=== PATIENT | female | born 1975 | race Caucasian/White ===

== ENCOUNTER 2021-06-30 18:58 | Emergency (ER) | payer OTHER, SELFPAY ==
--- NOTE | ~2021-06-30 | CT_ITS ---
EXAMINATION: CT ABDOMEN AND PELVIS WITH CONTRAST CLINICAL INFORMATION: Pain to palpation, right lower quadrant COMPARISON: None TECHNIQUE: Multidetector volumetric images were obtained from the superior aspect of the liver through the pubic symphysis following administration 85 mL of Omnipaque 350 intravenous contrast. Sagittal and coronal reformatted images were obtained on the technologist's workstation. Oral contrast: No This CT examination was performed using dose optimization techniques as appropriate, variously including the following: *Automated exposure control *Adjustment of mA and/or kV according to patient size (this includes techniques or standardized protocols for targeted exams where dose is matched to indication/reason for exam; i.e. extremities or head) *Use of iterative reconstruction technique DLP: 582 mGy-cm FINDINGS: LUNG BASES: The visualized lung bases are unremarkable. LIVER, GALLBLADDER, AND BILIARY TREE: The liver is normal in size, shape, and attenuation. No focal hepatic lesion or biliary ductal dilatation is present. Cholecystectomy. PANCREAS: Unremarkable. SPLEEN: Unremarkable. ADRENAL GLANDS: Unremarkable. KIDNEYS AND URETERS: The kidneys are normal in size, shape, and attenuation. There are couple subcentimeter cysts in the lower pole of left kidney, benign requiring no further follow-up. No hydronephrosis, hydroureter, or calculi seen. No perinephric stranding. BLADDER: Unremarkable. GASTROINTESTINAL TRACT: The small and large bowel are unremarkable. The appendix is unremarkable. ABDOMINAL WALL: No significant hernia is appreciated. LYMPH NODES: Normal. VASCULAR: Unremarkable. PELVIC VISCERA: Uterus and ovaries are unremarkable. OSSEOUS STRUCTURES: No acute or suspicious osseous abnormalities. Degenerative changes present at L5-S1. CT/CT abdomen pelvis w con IMPRESSION: No potential etiology for the patient's pain in the right lower quadrant is identified. Appendix is normal. Cholecystectomy.
[2021-06-30 19:30] VITALS: BP 134/93; PULSE 71; RESP 18; TEMP 35.9; O2SAT 100; BMI 34.0
--- NOTE | 2021-06-30 20:12 | ED.ABDPAIN ---
HPI - Abdominal Pain General Chief Complaint: Abdominal Pain <Shaun Mariano MD - Last Filed: 06/30/21:> Stated Complaint: abd pain <Shaun Mariano MD - Last Filed: 06/30/21:> Time Seen by Provider: 06/30/21 19:58 <Shaun Mariano MD - Last Filed: 06/30/21:> Source: patient <Shaun Mariano MD - Last Filed: 06/30/21:> Mode of arrival: ambulatory <Shaun Mariano MD - Last Filed: 06/30/21:> Limitations: no limitations <Shaun Mariano MD - Last Filed: 06/30/21:> History of Present Illness HPI narrative: 46-year-old female to the emergency department with right lower quadrant pain, anorexia, diarrhea and dizziness x4 days. She states that she decided to come into the emergency department because urgent care was concerned about appendicitis. She states that the pain was initially intermittent in nature and now the patient is constant. It does not radiate. She states that she has been having about 2 episodes of diarrhea per day. She states that she has been dizzy on and off since Monday and she describes as not being able to catch her balance. She also states that she has had decreased appetite since Monday. Past surgical history significant for cholecystectomy. She denies fevers, chills, chest pain, shortness of breath, recent upper respiratory infection and, weakness. <Shaun Mariano MD - Last Filed: 06/30/21 21:> MD elicited complaint: abdominal pain <Shaun Mariano MD - Last Filed: 06/30/21:> Pertinent past history: none <Shaun Mariano MD - Last Filed: 06/30/21:> Onset (ago): day(s) (4) <Shaun Mariano MD - Last Filed: 06/30/21:> Pain Consistency: constant <Shaun Mariano MD - Last Filed: 06/30/21:> Location: RLQ <Shaun Mariano MD - Last Filed: 06/30/21:> Severity: severe <Shaun Mariano MD - Last Filed: 06/30/21 21:> Quality: stabbing <Shaun Mariano MD - Last Filed: 06/30/21 21:> Radiation: none <Shaun Mariano MD - Last Filed: 06/30/21 21:> Migration to: no migration <Shaun Mariano MD - Last Filed: 06/30/21 21:> Exacerbating factors: nothing <Shaun Mariano MD - Last Filed: 06/30/21 21:> Relieving factors: nothing <Shaun Mariano MD - Last Filed: 06/30/21 21:> Associated symptoms: diarrhea and anorexia <Shaun Mariano MD - Last Filed: 06/30/21 21:> Related Data Allergies/Adverse Reactions: Allergies Allergy/AdvReac Type Severity Reaction Status Date / Time acetaminophen [From Percocet] Allergy Itching Verified 06/30/21 19:39 oxycodone [From Percocet] Allergy Itching Verified 06/30/21 19:39 <Shaun Mariano MD - Last Filed: 06/30/21 21:> Review of Systems Review of Systems Constitutional : No Weight loss, No Fever, No Chills, No Night Sweats, No Fatigue, No Malaise ENT/Mouth : No Hearing loss, No Ear Pain, No Nasal Congestion, No Sinus Pain, No Hoarseness, No sore throat, No Rhinorrhea, No Swallowing Difficulty Eyes: No Eye Pain, No Swelling, No Redness, No Foreign Body, No Discharge, No Vision Changes Cardiovascular : No Chest Pain, No SOB, No Dyspnea on Exertion, No Orthopnea, No Edema, No Palpitations Respiratory : No Cough, No Sputum, No Wheezing, No Smoke Exposure, No Dyspnea Gastrointestinal : No Nausea, No Vomiting, positive Diarrhea, positive abdominal Pain, No Hematochezia, No Melena Genitourinary : no irregular bleeding, No Dysuria, No Urinary Frequency, No Hematuria, No Urinary Incontinence, No Urgency, No Flank Pain, No Urinary Flow Changes, No Hesitancy Musculoskeletal : No joint pain, No Myalgias, No Joint Swelling Skin : No Skin Lesions, No rash Neuro : No Weakness, No Numbness, No Paresthesias, No Loss of Consciousness, No Dizziness, No Headache <Shaun Mariano MD - Last Filed: 06/30/21 21:01> Reports Abnormal speech present <Shaun Mariano MD - Last Filed: 06/30/21 21:01> Physical Exam Vital Signs: Vital Signs: Last Vital Signs Temp 96.6 F L 06/30/21 19:30 Pulse 71 06/30/21 19:30 Resp 18 06/30/21 19:30 BP 134/93 H 06/30/21 19:30 Pulse Ox 100 06/30/21 19:30 Body Mass Index 34.0 <Shaun Mariano MD - Last Filed: 06/30/21 21:01> Vital Signs: Last Vital Signs Temp 96.6 F L 06/30/21 19:30 Pulse 71 06/30/21 19:30 Resp 18 06/30/21 19:30 BP 134/93 H 06/30/21 19:30 Pulse Ox 100 06/30/21 19:30 Body Mass Index 34.0 <Ines Mera MD - Last Filed: 06/30/21 23:15> Const: General: cooperative <Shaun Mariano MD - Last Filed: 06/30/21 21:01> Nutritional Appearance: average body habitus <Shaun Mariano MD - Last Filed: 06/30/21 21:01> Orientation/consciousness: oriented to person, oriented to place and oriented to time <Shaun Mariano MD - Last Filed: 06/30/21 21:01> Limitations: no limitations <Shaun Mariano MD - Last Filed: 06/30/21 21:01> HENMT: Head: Yes normal to inspection <Shaun Mariano MD - Last Filed: 06/30/21 21:01> Mouth: Normal oral and palatal mucosa present <Shaun Mariano MD - Last Filed: 06/30/21 21:01> Eyes: General: appearance normal, both eyes and all related structures <Shaun Mariano MD - Last Filed: 06/30/21 21:01> Pupils: Equal, round and reactive pupils present <Shaun Mariano MD - Last Filed: 06/30/21 21:> EOM: EOMs intact bilaterally <Shaun Mariano MD - Last Filed: 06/30/21 21:> Neck: Neck: Yes normal visual inspection and Yes full ROM <Shaun Mariano MD - Last Filed: 06/30/21 21:> Thyroid: Thyroid normal <Shaun Mariano MD - Last Filed: 06/30/21 21:> Lymphatic: no lymphadenopathy noted <Shaun Mariaon MD - Last Filed: 06/30/21 21:> Resp: Effort & Inspection: normal respiratory effort and able to speak in complete sentences <Shaun Mariano MD - Last Filed: 06/30/21 21:> Auscultation: clear to auscultation bilaterally <Shaun Mariano MD - Last Filed: 06/30/21 21:> Cardio: Palpation: normal PMI <Shaun Mariano MD - Last Filed: 06/30/21 21:> Rate: regular rate <Shaun Mariano MD - Last Filed: 06/30/21 21:> Rhythm: regular rhythm and abnormal rhythm <Shaun Mariano MD - Last Filed: 06/30/21 21:> Heart sounds: S1 normal heart sound present and S2 normal heart sound present <Shaun Mariano MD - Last Filed: 06/30/21 21:> GI: Inspection: Yes normal to inspection <Shaun Mariano MD - Last Filed: 06/30/21 21:> Palpation (GI): Soft to palpation and Tenderness to palpation present (GI) in the RLQ, at McBurney's point, obturator sign positive and Rovsing's sign positive; Negative for Hernandez's sign negative <Shaun Mariano MD - Last Filed: 06/30/21 21:> Auscultation: normal bowel sounds <Shaun Mariano MD - Last Filed: 06/30/21 21:> : General: Yes no CVA tenderness <Shaun Mariano MD - Last Filed: 06/30/21 21:01> Back/Spine/Pelvis: Back: no CVA tenderness <Shaun Mariano MD - Last Filed: 06/30/21 21:01> Neuro: General: oriented to person, oriented to place and oriented to time <Shaun Mariano MD - Last Filed: 06/30/21 21:01> Cranial nerves: Yes CN's II-XII intact bilaterally and Yes Equal, round and reactive pupils present <Shaun Mariano MD - Last Filed: 06/30/21 21:01> Cognition (Neuro): normal cognition <Shaun Mariano MD - Last Filed: 06/30/21 21:> Speech: Abnormal speech present <Shaun Mariano MD - Last Filed: 06/30/21 21:> Gait exam (Neuro): Normal gait present <Shaun Mariano MD - Last Filed: 06/30/21 21:> Motor exam (neuro): 5/5 motor strength present throughout <Shaun Mariano MD - Last Filed: 06/30/21 21:01> Sensory Exam: Normal double simultaneous stimulation for sensation <Shaun Mariano MD - Last Filed: 06/30/21 21:01> Extrem: General: Yes normal to inspection, Yes full ROM and Yes no pedal edema <Shaun Mariano MD - Last Filed: 06/30/21 21:01> Psych: Mental Status: mental status grossly normal <Shaun Mariano MD - Last Filed: 06/30/21 21:01> Course Course Course Narrative: 46-year-old female who was signed out to me and on re-evaluation has had complete resolution of her pain and on review of all investigations there are no acute findings to better explain patient's presentation. She was strongly encouraged to follow-up with her primary care provider for re-evaluation and further an outpatient investigation. <Ines Mera MD - Last Filed: 06/30/21 23:15> MDM - Abdominal Pain MDM Narrative Medical decision making narrative: 46-year-old female to the emergency department with right lower quadrant pain, anorexia, diarrhea and dizziness x4 days. Upon physical examination the patient appears well, she is resting comfortably on the stretcher. There is tenderness to palpation to the right lower quadrant positive McBurney's, positive Rosving, positive obturator sign. Concerning for appendicitis. Negative murphys sign. Plan- obtain CT of abdomen and pelvis, basic labs, UA, urine , lipase, COVID <Shaun Mariano MD - Last Filed: 06/30/21 21:01> Lab Data Attestation: I reviewed the patient's lab results. <Shaun Mariano MD - Last Filed: 06/30/21 21:01> Result diagrams: : 06/30/21 21:10 06/30/21 21:10 <Shaun aMriano MD - Last Filed: 06/30/21 21:01> Labs: Lab Results 06/30/21 06/30/21 06/30/21 Range/Units 20:16 20:16 20:16 WBC (4.8-10.8) X10*3/uL RBC (4.20-5.50) X10*6/uL Hgb (12.0-16.0) g/dl Hct (37-47) % MCV (80-98) fL MCH (27.0-33.0) pg MCHC (31.0-35.0) g/dl RDW (11.0-16.0) % Plt Count (160-400) X10*3/uL MPV (9.4-12.3) fL Immature Gran % (Auto) (0.0-0.4) % Neut % (Auto) (45-73) % Lymph % (Auto) (20-40) % [place] % (Auto) (2-11) % Eos % (Auto) (0-4) % Baso % (Auto) (0-2) % Lymph # (Auto) (1.2-4.9) X10*3/uL [place] # (Auto) (0.1-1.2) X10*3/uL Eos # (Auto) (0.0-0.4) X10*3/uL Baso # (Auto) (0.0-0.2) X10*3/uL Abs Immat Gran (auto) (0.00-0.03) X10*3/uL Absolute Neuts (auto) (2.0-8.3) X10*3/uL Absolute Nucleated RBC (0.0-0.012) X10*3/uL Nucleated RBC % (auto) (0.0-0.2) /100WBC Sodium (135-145) mmol/L Potassium (3.3-5.1) mmol/L Chloride (96-108) mmol/L Carbon Dioxide (22-29) mmol/L Anion Gap (12-20) BUN (9-16) mg/dL Creatinine (0.5-1.4) mg/dL Estim Creat Clear Calc Estimated GFR Random Glucose (60-115) mg/dL Calcium (8.4-10.2) mg/dL Total Bilirubin (0.0-1.0) mg/dL AST (5-31) U/L ALT (0-31) U/L Alkaline Phosphatase (39-117) U/L Total Protein (6.5-8.0) g/dL Albumin (3.5-5.0) g/dL Lipase (8-78) U/L Urine Color YELLOW Urine Appearance CLEAR Urine pH 6.5 (5.0-8.0) Ur Specific [place] 1.010 (1.005-1.025) Urine Protein NEG (NEG-TRACE) MG/DL Urine Glucose (UA) NEG (NEG) MG/DL Urine Ketones NEG (NEG) MG/DL Urine Blood 1+ H (NEG) Urine Nitrite NEG (NEG) Ur Leukocyte Esterase NEG (NEG) Urine RBC 5-9 H (0) /HPF Urine WBC 0-2 (0-4) /HPF Ur Squamous Epith Cells 1+ /LPF Urine Bacteria TRACE /LPF Urine Test NEGATIVE (NEGATIVE) COVID-19 ([facility]) Negative (Negative) COVID-19 Clin Com See Note 06/30/21 06/30/21 Range/Units 21:10 21:10 WBC 11.0 H (4.8-10.8) X10*3/uL RBC 4.64 (4.20-5.50) X10*6/uL Hgb 10.2 L (12.0-16.0) g/dl Hct 34.2 L (37-47) % MCV 73.7 L (80-98) fL MCH 22.0 L (27.0-33.0) pg MCHC 29.8 L (31.0-35.0) g/dl RDW 17.4 H (11.0-16.0) % Plt Count 302 (160-400) X10*3/uL MPV 9.7 (9.4-12.3) fL Immature Gran % (Auto) 0.3 (0.0-0.4) % Neut % (Auto) 68.5 (45-73) % Lymph % (Auto) 23.2 (20-40) % [place] % (Auto) 5.8 (2-11) % Eos % (Auto) 1.3 (0-4) % Baso % (Auto) 0.9 (0-2) % Lymph # (Auto) 2.6 (1.2-4.9) X10*3/uL [place] # (Auto) 0.6 (0.1-1.2) X10*3/uL Eos # (Auto) 0.1 (0.0-0.4) X10*3/uL Baso # (Auto) 0.1 (0.0-0.2) X10*3/uL Abs Immat Gran (auto) 0.03 (0.00-0.03) X10*3/uL Absolute Neuts (auto) 7.6 (2.0-8.3) X10*3/uL Absolute Nucleated RBC 0.000 (0.0-0.012) X10*3/uL Nucleated RBC % (auto) 0.0 (0.0-0.2) /100WBC Sodium 138 (135-145) mmol/L Potassium 4.0 (3.3-5.1) mmol/L Chloride 107 (96-108) mmol/L Carbon Dioxide 26 (22-29) mmol/L Anion Gap 9 L (12-20) BUN 12 (9-16) mg/dL Creatinine 0.69 (0.5-1.4) mg/dL Estim Creat Clear Calc 96.5 Estimated GFR > 60 Random Glucose 92 (60-115) mg/dL Calcium 9.0 (8.4-10.2) mg/dL Total Bilirubin < 0.2 (0.0-1.0) mg/dL AST 16 (5-31) U/L ALT 13 (0-31) U/L Alkaline Phosphatase 63 (39-117) U/L Total Protein 7.0 (6.5-8.0) g/dL Albumin 3.8 (3.5-5.0) g/dL Lipase 31 (8-78) U/L Urine Color Urine Appearance Urine pH (5.0-8.0) Ur Specific [place] (1.005-1.025) Urine Protein (NEG-TRACE) MG/DL Urine Glucose (UA) (NEG) MG/DL Urine Ketones (NEG) MG/DL Urine Blood (NEG) Urine Nitrite (NEG) Ur Leukocyte Esterase (NEG) Urine RBC (0) /HPF Urine WBC (0-4) /HPF Ur Squamous Epith Cells /LPF Urine Bacteria /LPF Urine Test (NEGATIVE) COVID-19 ([facility]) (Negative) COVID-19 Clin Com <Shaun Mariano MD - Last Filed: 06/30/21 21:01> Lab Results 06/30/21 06/30/21 06/30/21 Range/Units 20:16 20:16 20:16 WBC (4.8-10.8) X10*3/uL RBC (4.20-5.50) X10*6/uL Hgb (12.0-16.0) g/dl Hct (37-47) % MCV (80-98) fL MCH (27.0-33.0) pg MCHC (31.0-35.0) g/dl RDW (11.0-16.0) % Plt Count (160-400) X10*3/uL MPV (9.4-12.3) fL Immature Gran % (Auto) (0.0-0.4) % Neut % (Auto) (45-73) % Lymph % (Auto) (20-40) % [place] % (Auto) (2-11) % Eos % (Auto) (0-4) % Baso % (Auto) (0-2) % Lymph # (Auto) (1.2-4.9) X10*3/uL [place] # (Auto) (0.1-1.2) X10*3/uL Eos # (Auto) (0.0-0.4) X10*3/uL Baso # (Auto) (0.0-0.2) X10*3/uL Abs Immat Gran (auto) (0.00-0.03) X10*3/uL Absolute Neuts (auto) (2.0-8.3) X10*3/uL Absolute Nucleated RBC (0.0-0.012) X10*3/uL Nucleated RBC % (auto) (0.0-0.2) /100WBC Sodium (135-145) mmol/L Potassium (3.3-5.1) mmol/L Chloride (96-108) mmol/L Carbon Dioxide (22-29) mmol/L Anion Gap (12-20) BUN (9-16) mg/dL Creatinine (0.5-1.4) mg/dL Estim Creat Clear Calc Estimated GFR Random Glucose (60-115) mg/dL Calcium (8.4-10.2) mg/dL Total Bilirubin (0.0-1.0) mg/dL AST (5-31) U/L ALT (0-31) U/L Alkaline Phosphatase (39-117) U/L Total Protein (6.5-8.0) g/dL Albumin (3.5-5.0) g/dL Lipase (8-78) U/L Urine Color YELLOW Urine Appearance CLEAR Urine pH 6.5 (5.0-8.0) Ur Specific [place] 1.010 (1.005-1.025) Urine Protein NEG (NEG-TRACE) MG/DL Urine Glucose (UA) NEG (NEG) MG/DL Urine Ketones NEG (NEG) MG/DL Urine Blood 1+ H (NEG) Urine Nitrite NEG (NEG) Ur Leukocyte Esterase NEG (NEG) Urine RBC 5-9 H (0) /HPF Urine WBC 0-2 (0-4) /HPF Ur Squamous Epith Cells 1+ /LPF Urine Bacteria TRACE /LPF Urine Test NEGATIVE (NEGATIVE) COVID-19 ([facility]) Negative (Negative) COVID-19 Clin Com See Note 06/30/21 06/30/21 Range/Units 21:10 21:10 WBC 11.0 H (4.8-10.8) X10*3/uL RBC 4.64 (4.20-5.50) X10*6/uL Hgb 10.2 L (12.0-16.0) g/dl Hct 34.2 L (37-47) % MCV 73.7 L (80-98) fL MCH 22.0 L (27.0-33.0) pg MCHC 29.8 L (31.0-35.0) g/dl RDW 17.4 H (11.0-16.0) % Plt Count 302 (160-400) X10*3/uL MPV 9.7 (9.4-12.3) fL Immature Gran % (Auto) 0.3 (0.0-0.4) % Neut % (Auto) 68.5 (45-73) % Lymph % (Auto) 23.2 (20-40) % [place] % (Auto) 5.8 (2-11) % Eos % (Auto) 1.3 (0-4) % Baso % (Auto) 0.9 (0-2) % Lymph # (Auto) 2.6 (1.2-4.9) X10*3/uL [place] # (Auto) 0.6 (0.1-1.2) X10*3/uL Eos # (Auto) 0.1 (0.0-0.4) X10*3/uL Baso # (Auto) 0.1 (0.0-0.2) X10*3/uL Abs Immat Gran (auto) 0.03 (0.00-0.03) X10*3/uL Absolute Neuts (auto) 7.6 (2.0-8.3) X10*3/uL Absolute Nucleated RBC 0.000 (0.0-0.012) X10*3/uL Nucleated RBC % (auto) 0.0 (0.0-0.2) /100WBC Sodium 138 (135-145) mmol/L Potassium 4.0 (3.3-5.1) mmol/L Chloride 107 (96-108) mmol/L Carbon Dioxide 26 (22-29) mmol/L Anion Gap 9 L (12-20) BUN 12 (9-16) mg/dL Creatinine 0.69 (0.5-1.4) mg/dL Estim Creat Clear Calc 96.5 Estimated GFR > 60 Random Glucose 92 (60-115) mg/dL Calcium 9.0 (8.4-10.2) mg/dL Total Bilirubin < 0.2 (0.0-1.0) mg/dL AST 16 (5-31) U/L ALT 13 (0-31) U/L Alkaline Phosphatase 63 (39-117) U/L Total Protein 7.0 (6.5-8.0) g/dL Albumin 3.8 (3.5-5.0) g/dL Lipase 31 (8-78) U/L Urine Color Urine Appearance Urine pH (5.0-8.0) Ur Specific [place] (1.005-1.025) Urine Protein (NEG-TRACE) MG/DL Urine Glucose (UA) (NEG) MG/DL Urine Ketones (NEG) MG/DL Urine Blood (NEG) Urine Nitrite (NEG) Ur Leukocyte Esterase (NEG) Urine RBC (0) /HPF Urine WBC (0-4) /HPF Ur Squamous Epith Cells /LPF Urine Bacteria /LPF Urine Test (NEGATIVE) COVID-19 ([facility]) (Negative) COVID-19 Clin Com <Ines Mera MD - Last Filed: 06/30/21 23:15> Discharge Plan Discharge Clinical Impression: Abdominal pain <Shaun Mariano MD - Last Filed: 06/30/21 21:01> Patient Disposition: Home, Self-Care <Shaun Mariano MD - Last Filed: 06/30/21 21:01> Instructions: Abdominal Pain (ED) <Shaun Mariano MD - Last Filed: 06/30/21 21:01> Additional Instructions: Follow-up with your primary care provider in the morning for re-evaluation further outpatient management. Return to the ER for acute worsening of symptoms. <Shaun Mariano MD - Last Filed: 06/30/21 21:01> Referrals: Larisa Barreto [Primary Care Provider] - 2 days <Shaun Mariano MD - Last Filed: 06/30/21 21:01> PMFSH Past Medical History Attestation statement: The following information was validated with the patient. <Shaun Mariano MD - Last Filed: 06/30/21 21:01> Source: old records reviewed and nursing notes reviewed <Shaun Mariano MD - Last Filed: 06/30/21 21:01> Medical History: Medical History No known health problems <Shaun Mariano MD - Last Filed: 06/30/21 21:01> Surgical History: Surgical History No history of previous surgery <Shaun Mariano MD - Last Filed: 06/30/21 21:01> Social History Social History: Social History Advance Directives: No Advance Directives Information Provided: Yes Patient : No <Shaun Mariano MD - Last Filed: 06/30/21 21:01>
[2021-06-30 20:25] LABS: Appearance Urine CLEAR; Color Urine YELLOW; Glucose Urine UA NEG (NEG); Leukocyte Esterase Urine NEG (NEG); Nitrite Urine NEG (NEG); PH 6.5 (5.0-8.0); UACC Culture Trigger NO; Urine Blood 1+ (NEG); Urine Ketones NEG (NEG); Urine Protein NEG (NEG-TRACE)
[2021-06-30 20:29] LABS: UPreg QC Valid YES; Urine Pregnancy NEGATIVE (NEGATIVE)
[2021-06-30 20:38] LABS: COVID-19 Test Negative (Negative); IDNOW Serial# 55D5AD1C
[2021-06-30 20:40] LABS: Bacteria Urine TRACE /LPF; Squamous Epithelial Cell Urine 1+ /LPF; WBC Urine 0-2 /HPF (0-4)
[2021-06-30] MEDS: Morphine Sulfate 4 MG/ML CARTRIDGE IVPUSH (20:43)
[2021-06-30 21:19] LABS: Basophils Absolute Auto 0.1 X10*3/uL (0.0-0.2); Basophils Percent Auto 0.9 % (0-2); Eosinophils Absolute Auto 0.1 X10*3/uL (0.0-0.4); Eosinophils Percent Auto 1.3 % (0-4); Hematocrit 34.2 % (37-47); Hemoglobin 10.2 g/dl (12.0-16.0); Imm Gran Abs Auto 0.03 X10*3/uL (0.00-0.03); Imm Gran Pct Auto 0.3 % (0.0-0.4); Lymphocytes Absolute Auto 2.6 X10*3/uL (1.2-4.9); Lymphocytes Percent Auto 23.2 % (20-40); MANUAL DIFF FLAG NO; Mean Corpuscular HGB Conc 29.8 g/dl (31.0-35.0); Mean Corpuscular Volume 73.7 fL (80-98); Mean Platelet Volume 9.7 fL (9.4-12.3); Monocytes Absolute Auto 0.6 X10*3/uL (0.1-1.2); Monocytes Percent Auto 5.8 % (2-11); Neutrophils Absolute Auto 7.6 X10*3/uL (2.0-8.3); Neutrophils Percent Auto 68.5 % (45-73); Platelet Count 302 X10*3/uL (160-400); Red Blood Count 4.64 X10*6/uL (4.20-5.50); Red Cell Distribution Width 17.4 % (11.0-16.0)
[2021-06-30 21:42] LABS: Alanine Aminotransferase 13 U/L (0-31); Albumin Level 3.8 g/dL (3.5-5.0); Alkaline Phosphatase 63 U/L (39-117); Anion Gap 9 (12-20); Aspartate Amino Transferase 16 U/L (5-31); Bilirubin Total < 0.2 mg/dL (0.0-1.0); Blood Urea Nitrogen 12 mg/dL (9-16); Carbon Dioxide 26 mmol/L (22-29); Chloride 107 mmol/L (96-108); Creatinine Clr Calc Pharmacy 96.5; Estimated Glomerular Filt Rate > 60; Glucose Random 92 mg/dL (60-115); Lipase 31 U/L (8-78); Sodium 138 mmol/L (135-145)
[2021-06-30] MEDS: iohexoL 350 MG/ML 100 ML INFUS..BTL IV (21:56)
== END 2021-06-30 23:20 | disposition home or self-care (01) ==
PROVIDERS: Internal Medicine; Emergency Provider Student in an Organized Health Care Education/Training Program; PCP Internal Medicine
DX: R10.31 Right lower quadrant pain (principal); Z20.822 Contact with and (suspected) exposure to COVID-19
CPT/HCPCS: 36415; 74177; 80053; 81001; 81025; 83690; 85025; 87635; 96374; 99283; 99284; J2270; Q9967

== ENCOUNTER 2021-11-14 11:51 | Emergency (ER) | payer OTHER, SELFPAY ==
[2021-11-14 12:14] VITALS: BP 131/86; PULSE 77; RESP 16; TEMP 36.4; O2SAT 100; BMI 34.9
--- NOTE | 2021-11-14 13:20 | ED.FEMALEGU ---
HPI - Female Genitourinary General Chief complaint: Vaginal Bleeding Stated complaint: Vaginal bleeding x7 days Time Seen by Provider: 11/14/21 12:53 Source: patient Mode of arrival: ambulatory Limitations: no limitations History of Present Illness HPI Narrative: 46-year-old female who presents emergency department for evaluation vaginal bleeding. The patient states that she gets a menstrual period every month. She states that she will normal and have heavy bleeding for the 1st 3-4 days and usually her menses ends after approximately 7 days. She states that this menstrual period was at least 1 week late. She states that initially she bled on and off in was spotting. She states over the last week however she has had heavy bleeding. She has soaked through 3-4 pads per day which is unusual for her. She complains of mild , intermittent, cramping and points to her suprapubic area when asked to localize this pain. She states that she is feeling lightheaded and dizzy. She states she does have low iron is often anemic. States that she is feeling very fatigued and has some mild dyspnea on exertion. She denied fever, cough, sore throat, chest pain, shortness of breath, vomiting or diarrhea. She states she has had occasional chills and she has had some nausea associated with her cramping. She gets her gynecologic care at [facility] [place]. elicited complaint: vaginal bleeding Onset (ago): day(s) (7) Location of symptoms: vaginal Severity: mild Female Urogenital Radiation: Non-Radiating Severity scale (1-10): 3 Quality of pain: cramping Consistency: intermittent Vaginal discharge: none Vaginal bleeding: heavy (Soaks through 3-4 pads per day) Exacerbating factors: none Relieving factors: none Associated symptoms: weakness, chills and nausea Treatment prior to arrival: none Sexual activity: Yes Patient : No Related Data Previous Rx's Medication Instructions Recorded medroxyprogesterone 10 mg tablet 10 mg PO DAILY 10 Days #10 tab 11/14/21 (Provera) Allergies Allergy/AdvReac Type Severity Reaction Status Date / Time acetaminophen [From Percocet] Allergy Itching Verified 06/30/21 19:39 oxycodone [From Percocet] Allergy Itching Verified 06/30/21 19:39 Review of Systems Review of Systems: Yes all other systems are reviewed and are negative PMFSH Past Medical History [facility] Narrative: Past medical history: Iron deficient anemia, migraines. Past surgical history: Cholecystectomy, x2. Social history: She denies tobacco, alcohol and drug use. Medical History Anemia Surgical History No history of previous surgery Social History Social History Alcohol intake: never Patient Tobacco Use Status: Never used Tobacco Use of substances other than those prescribed or required for medical reasons: No Advance Directives: No Advance Directives Information Provided: No Patient : No Physical Exam Vital Signs: Vital Signs: Last Vital Signs Temp 98.6 F 11/14/21 13:44 Pulse 66 11/14/21 13:44 Resp 16 11/14/21 13:44 BP 125/83 11/14/21 13:44 Pulse Ox 99 11/14/21 13:44 BMI result Body Mass Index 34.9 Const: General: cooperative and no acute distress Orientation/consciousness: oriented to person and oriented to place Limitations: no limitations HENMT: Head: Yes normal to inspection, Yes normocephalic and Yes atraumatic Ears: external ears normal General nose exam: Normal external nose present Face and sinus: Yes normal facial exam Mouth: Normal oral and palatal mucosa present Throat: Yes posterior oropharynx normal Eyes: General: appearance normal, both eyes and all related structures Pupils: Equal, round and reactive pupils present Neck: Neck: Yes normal visual inspection, Yes no lymphadenopathy, Yes trachea midline and Yes supple Chest: Chest palpation & inspection: normal inspection of the chest and normal palpation of entire chest wall Resp: Effort & Inspection: normal respiratory effort and able to speak in complete sentences Auscultation: clear to auscultation bilaterally Cardio: Rate: regular rate Rhythm: regular rhythm Heart sounds: S1 normal heart sound present, S2 normal heart sound present and no murmurs GI: Inspection: Yes normal to inspection Palpation (GI): Soft to palpation, nontender and no guarding Auscultation: normal bowel sounds : Other: Pelvic exam deferred at patient's request General: Yes no CVA tenderness Back/Spine/Pelvis: Back: no CVA tenderness Skin: General skin exam: no rashes or lesions noted Neuro: General: oriented to person and oriented to place Cranial nerves: Yes CN's II-XII intact bilaterally and Yes Equal, round and reactive pupils present Cognition (Neuro): normal cognition Motor exam (neuro): 5/5 motor strength present throughout Extrem: General: Yes normal to inspection Psych: Appearance: grossly normal Speech and movement: Normal speech and movement present Affect: normal affect Attitude: cooperative Thought process: Normal thought process present Thought content: Normal thought content present Course Course Course Narrative: 46-year-old female who presents to emergency department for evaluation of dysfunctional uterine bleeding. The patient has been having normal periods monthly except for this month when she states that her menstrual period was 1 week late and she now has 7 days heavy bleeding which is unusual for her. She is also complaining of mild intermittent cramping, nausea and chills. She also is feeling weak, lightheaded, fatigued and has some mild dyspnea on exertion. Vital signs were normal. Physical examination was unremarkable however the patient deferred pelvic exam. I ordered a laboratory evaluation includes CBC, CMP, quantitative beta-hCG. Patient will be treated with normal saline x1 L. 1503: Laboratory evaluation: H&H was stable at 9.9 and 34.1 compared to 07/18/2021 when it was 10.2 and 34.2. CMP was normal. Serum quantitative Beta hCG was below detectable limits. I did discuss these findings with the patient. At this time I believe the patient will be discharged home. I did start her on Provera 10 mg once a day for 10 days to try to stop her bleeding. Patient was advised to follow-up with her OBGYN for follow-up. MDM - Female Genitourinary Lab Data Result diagrams: 11/14/21 14:01 11/14/21 14:01 Labs: Lab Results 11/14/21 11/14/21 Range/Units 14:01 14:01 WBC 9.5 (4.8-10.8) X10*3/uL RBC 4.49 (4.20-5.50) X10*6/uL Hgb 9.9 L (12.0-16.0) g/dl Hct 34.1 L (37.0-47.0) % MCV 75.9 L (80.0-98.0) fL MCH 22.0 L (27.0-33.0) pg MCHC 29.0 L (31.0-35.0) g/dl RDW 17.7 H (11.0-16.0) % Plt Count 339 (160-400) X10*3/uL MPV 9.9 (9.4-12.3) fL Immature Gran % (Auto) 0.2 (0.0-0.4) % Neut % (Auto) 61.2 (45-73) % Lymph % (Auto) 27.7 (20-40) % Deuel % (Auto) 7.5 (2-11) % Eos % (Auto) 2.4 (0-4) % Baso % (Auto) 1.0 (0-2) % Lymph # (Auto) 2.6 (1.2-4.9) X10*3/uL Deuel # (Auto) 0.7 (0.1-1.2) X10*3/uL Eos # (Auto) 0.2 (0.0-0.4) X10*3/uL Baso # (Auto) 0.1 (0.0-0.2) X10*3/uL Abs Immat Gran (auto) 0.02 (0.00-0.03) X10*3/uL Absolute Neuts (auto) 5.8 (2.0-8.3) x10*3/uL Absolute Nucleated RBC 0.000 (0.0-0.012) X10*3/uL Nucleated RBC % (auto) 0.0 (0.0-0.2) /100WBC Sodium 139 (135-145) mmol/L Potassium 4.0 (3.3-5.1) mmol/L Chloride 106 (96-108) mmol/L Carbon Dioxide 26 (22-29) mmol/L Anion Gap 11 L (12-20) BUN 14 (9-16) mg/dL Creatinine 0.75 (0.5-1.4) mg/dL Estim Creat Clear Calc 90.1 Estimated GFR > 60 Random Glucose 103 (60-115) mg/dL Calcium 9.2 (8.4-10.2) mg/dL Total Bilirubin 0.3 (0.0-1.0) mg/dL AST 17 (5-31) U/L ALT 10 (0-31) U/L Alkaline Phosphatase 58 (39-117) U/L Total Protein 7.1 (6.5-8.0) g/dL Albumin 3.7 (3.5-5.0) g/dL Beta HCG, Quant < 2 mIU/mL Discharge Plan Discharge Clinical Impression: Dysfunctional uterine bleeding Patient Disposition: Home, Self-Care Instructions: Dysfunctional Uterine Bleeding (ED) Additional Instructions: Your laboratory evaluation today was normal. Your hemoglobin and hematocrit were 9.9 and 34 % which is similar to previous values. Your blood test was below detectable limits, you are not . I am starting you on Provera (medroxyprogesterone) 10 mg once a day for 10 days. This should stop her bleeding. Sometimes after you stop this medication the bleeding can return. 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 Please return to the emergency department if your symptoms get worse or if you develop any symptoms that are concerning to you. Prescriptions: New medroxyprogesterone [Provera] 10 mg tablet 10 mg PO DAILY 10 Days Qty: 10 0RF
[2021-11-14 13:44] VITALS: BP 125/83; PULSE 66; RESP 16; TEMP 37; O2SAT 99
[2021-11-14] MEDS: 0.9 % Sodium Chloride 1,000 ML 999 ML IV (14:02)
[2021-11-14 14:06] LABS: Basophils Absolute Auto 0.1 X10*3/uL (0.0-0.2); Eosinophils Absolute Auto 0.2 X10*3/uL (0.0-0.4); Eosinophils Percent Auto 2.4 % (0-4); Hematocrit 34.1 % (37.0-47.0); Hemoglobin 9.9 g/dl (12.0-16.0); Imm Gran Abs Auto 0.02 X10*3/uL (0.00-0.03); Imm Gran Pct Auto 0.2 % (0.0-0.4); Lymphocytes Absolute Auto 2.6 X10*3/uL (1.2-4.9); Lymphocytes Percent Auto 27.7 % (20-40); MANUAL DIFF FLAG NO; Mean Corpuscular Volume 75.9 fL (80.0-98.0); Mean Platelet Volume 9.9 fL (9.4-12.3); Monocytes Absolute Auto 0.7 X10*3/uL (0.1-1.2); Monocytes Percent Auto 7.5 % (2-11); Neutrophils Absolute Auto 5.8 x10*3/uL (2.0-8.3); Neutrophils Percent Auto 61.2 % (45-73); Platelet Count 339 X10*3/uL (160-400); Red Blood Count 4.49 X10*6/uL (4.20-5.50); Red Cell Distribution Width 17.7 % (11.0-16.0); White Blood Count 9.5 X10*3/uL (4.8-10.8)
[2021-11-14 14:36] LABS: Alanine Aminotransferase 10 U/L (0-31); Albumin Level 3.7 g/dL (3.5-5.0); Alkaline Phosphatase 58 U/L (39-117); Anion Gap 11 (12-20); Aspartate Amino Transferase 17 U/L (5-31); Bilirubin Total 0.3 mg/dL (0.0-1.0); Blood Urea Nitrogen 14 mg/dL (9-16); Calcium 9.2 mg/dL (8.4-10.2); Carbon Dioxide 26 mmol/L (22-29); Chloride 106 mmol/L (96-108); Creatinine Clr Calc Pharmacy 90.1; Estimated Glomerular Filt Rate > 60; Glucose Random 103 mg/dL (60-115); Sodium 139 mmol/L (135-145); Total Protein 7.1 g/dL (6.5-8.0)
[2021-11-14 14:42] LABS: HCG Quantitative < 2 mIU/mL
[2021-11-14 15:28] VITALS: BP 128/82; PULSE 73; RESP 16; TEMP 36.6; O2SAT 97
== END 2021-11-14 15:29 | disposition home or self-care (01) ==
PROVIDERS: Emergency Provider Emergency Medicine Emergency Medical Services; PCP Internal Medicine
DX: N93.8 Other specified abnormal uterine and vaginal bleeding (principal); Z79.899 Other long term (current) drug therapy
CPT/HCPCS: 36415; 80053; 84702; 85025; 99284

== ENCOUNTER 2022-07-25 14:35 | Emergency (ER) | payer OTHER, SELFPAY ==
--- NOTE | ~2022-07-25 | XR_ITS ---
EXAMINATION: XR KNEE, RIGHT CLINICAL INFORMATION: Pain after falling COMPARISON: None TECHNIQUE: Four views of the right knee. FINDINGS: No fracture, dislocation or destructive process or joint effusion. XR/XR knee RT 4V IMPRESSION: Unremarkable exam.
--- NOTE | 2022-07-25 16:01 | ED_ITS ---
HPI - Fall General Chief Complaint: Extremity Injury, Lower <Kwesi Bolanos MD - Last Filed: 07/25/22 16:03> Stated Complaint: fall r knee inj <Kwesi Bolanos MD - Last Filed: 07/25/22 16:03> Time Seen by Provider: 07/25/22 17:41 <Kwesi Bolanos MD - Last Filed: 07/25/22 16:03> Source: patient and family <BERNICE Clark - Last Filed: 07/25/22 18:28> Mode of arrival: wheelchair <BERNICE Clark - Last Filed: 07/25/22 18:28> Limitations: no limitations <BERNICE Clark - Last Filed: 07/25/22 18:28> History of Present Illness HPI Narrative: Patient reports that she was walking down the steps and she fell on bilateral hands and knees although is having pain to her right knee with pain with weight-bearing. She denies head injury loss of consciousness or neck injury or any other injuries complaints or concerns at this time. She denies any symptoms prior to the fall. She denies any prolonged down time. She reports only right knee pain and unable to bear weight since after the fall. Otherwise denies any other symptoms. Not on any blood thinners. 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) <BERNICE Clark - Last Filed: 07/25/22 18:28> Fall witnessed: no <BERNICE Clark - Last Filed: 07/25/22 18:28> Place fall occurred: street <BERNICE Clark - Last Filed: 07/25/22 18:28> Loss of consciousness: none <BERNICE Clark - Last Filed: 07/25/22 18:28> Prolonged down time: no <BERNICE Clark - Last Filed: 07/25/22 18:28> Symptoms prior to fall: none <BERNICE Clark - Last Filed: 07/25/22 18:28> Context: tripped/slipped <BERNICE Clark - Last Filed: 07/25/22 18:28> Location of injury - extremities: right: knee <BERNICE Clark - Last Filed: 07/25/22 18:28> Severity: moderate <BERNICE Clark - Last Filed: 07/25/22 18:28> Quality: aching <BERNICE Clark - Last Filed: 07/25/22 18:28> Related Data Home Medications: Previous Rx's Medication Instructions Recorded medroxyprogesterone 10 mg tablet 10 mg PO DAILY 10 days #10 tabs 11/14/21 (Provera) ibuprofen 800 mg tablet 800 mg PO Q8H PRN pain #14 tabs 07/25/22 tramadol 50 mg tablet 50 mg PO Q8H PRN pain #14 tabs 07/25/22 <Kwesi Bolanos MD - Last Filed: 07/25/22 16:03> Allergies/Adverse Reactions: Allergies Allergy/AdvReac Type Severity Reaction Status Date / Time acetaminophen [From Percocet] Allergy Itching Verified 06/30/21 19:39 oxycodone [From Percocet] Allergy Itching Verified 06/30/21 19:39 <Kwesi Bolanos MD - Last Filed: 07/25/22 16:03> Review of Systems Review of Systems: Constitutional : No Weight loss, No Fever, No Chills, No Night Sweats, No Fatigue, No Malaise ENT/Mouth : No Hearing loss, No Ear Pain, No Nasal Congestion, No Sinus Pain, No Hoarseness, No sore throat, No Rhinorrhea, No Swallowing Difficulty Eyes: No Eye Pain, No Swelling, No Redness, No Foreign Body, No Discharge, No Vision Changes Cardiovascular : No Chest Pain, No SOB, No Dyspnea on Exertion, No Orthopnea, No Edema, No Palpitations Respiratory : No Cough, No Sputum, No Wheezing, No Smoke Exposure, No Dyspnea Gastrointestinal : No Nausea, No Vomiting, No Diarrhea, No Constipation, No abdominal Pain, No Hematochezia, No Melena Genitourinary : no irregular bleeding, No Dysuria, No Urinary Frequency, No Hematuria, No Urinary Incontinence, No Urgency, No Flank Pain, No Urinary Flow Changes, No Hesitancy Musculoskeletal : + Right knee joint pain, No Myalgias, No Joint Swelling Skin : No Skin Lesions, No rash Neuro : No Weakness, No Numbness, No Paresthesias, No Loss of Consciousness, No Dizziness, No Headache Psych : No Anxiety/Panic, No Depression, No SI/HI/AH/VH, No Social Issues, Heme/Lymph: No Bruising, No Bleeding,No Lymphadenopathy Endocrine : No Polyuria, No Polydipsia, No Temperature Intolerance <BERNICE Clark - Last Filed: 07/25/22 18:28> Yes all other systems are reviewed and are negative <BERNICE Clark - Last Filed: 07/25/22 18:28> ON LICENSE OF [facility] Past Medical History Attestation statement: The following information was validated with the patient. <BERNICE Clark - Last Filed: 07/25/22 18:28> Source: old records reviewed, obtained from family and nursing notes reviewed <BERNICE Clark - Last Filed: 07/25/22 18:28> Medical History: Medical History Anemia <Kwesi Bolanos MD - Last Filed: 07/25/22 16:03> Surgical History: Surgical History No history of previous surgery <Kwesi Bolanos MD - Last Filed: 07/25/22 16:03> Social History Social History: Social History Alcohol intake: never Patient Tobacco Use Status: Never used Tobacco Advance Directives: No Advance Directives Information Provided: No <Kwesi Bolanos MD - Last Filed: 07/25/22 16:03> Physical Exam Vital Signs: Vital Signs: Last Vital Signs Temp 98.3 F 07/25/22 16:02 Pulse 75 07/25/22 16:02 Resp 16 07/25/22 16:02 BP 140/85 H 07/25/22 16:02 Pulse Ox 99 07/25/22 16:02 O2 Del Method 07/25/22 16:02 BMI result Body Mass Index 34.9 <Kwesi Bolanos MD - Last Filed: 07/25/22 16:03> Vital Signs: Last Vital Signs Temp 98.3 F 07/25/22 16:02 Pulse 75 07/25/22 16:02 Resp 16 07/25/22 16:02 BP 140/85 H 07/25/22 16:02 Pulse Ox 99 07/25/22 16:02 O2 Del Method 07/25/22 16:02 BMI result Body Mass Index 34.9 vital signs have been reviewed as normal and appeared to be correct. Blood pressure 140/85 Heart rate normal. Respiration rate normal. Temperature nor mal. Oxygen saturation normal. <BERNICE Clark - Last Filed: 07/25/22 18:28> Appearance: Alert. Oriented X3. No acute distress. Head: Normal external exam. Normocephalic. Atraumatic. Eyes: PERRLA. EOMI. Conjunctiva and sclera normal. Eyelids normal. ENT: Pharynx normal. Uvula midline. Moist mucous membranes. Neck: Normal inspection. Neck supple. FROM. CVS: Normal heart rate and rhythm. Respiratory: No respiratory distress. Painless inspiration. Skin: Skin warm and dry. Normal skin color. Normal skin turgor. No rashes/lesions/lacerations noted. Extremities: Patient with moderate tenderness palpation to right patellar and medial aspect of the right knee. She has full range of motion of the right knee no obvious ligamentous or tendon injury noted. Muscles are intact not ruptured. No lower extremity edema or calf tenderness noted. Otherwise all other extremities exhibit normal range of motion nontender. Neuro: Oriented X 3. No motor deficit. No sensory deficit. Reflexes normal. No focal neuro deficits noted. Vascular: + radial pulses/+ 2 distal pedal pulses/+2 dorsalis pedis b/l. Normal cap refill. No cyanosis noted to upper extremity nails and lower extremity toes nails. <BERNICE Clark - Last Filed: 07/25/22 18:28> Course Reevaluation(s) Reevaluation #1: Fell on right knee landing on cement, patient has been unable to walk. Right patella with swelling and tenderness <Kwesi Bolanos MD - Last Filed: 07/25/22 16:03> Time: 16:03 <Kwesi Bolanos MD - Last Filed: 07/25/22 16:03> Reevaluation #2: - x-ray negative for any acute processes. No obvious ligamentous or tendon injury noted. Therefore at this time will DC home with knee immobilizer and crutches and symptomatic treatment instructions to follow-up with PCP in his symptoms persist for longer than 2-3 weeks to make a follow-up appointment with Orthopedics and to return if any new or worsening symptoms. Patient understands agrees with this plan. <BERNICE Clark - Last Filed: 07/25/22 18:28> Time: 17:50 <BERNICE Clark - Last Filed: 07/25/22 18:28> Procedures Orthopedic Splinting/Casting Injury #1: Side: right <BERNICE Clark - Last Filed: 07/25/22 18:28> Lower Extremity Injury Location: knee <BERNICE Clark - Last Filed: 07/25/22 18:28> Lower Extremity Immobilizer: Esau wrap <BERNICE Clark - Last Filed: 07/25/22 18:28> Other Orthopedic Equipment: crutches <BERNICE Clark - Last Filed: 07/25/22 18:28> MDM - Fall Medical Records Attestation: I reviewed the patient's medical records. <BERNICE Clark - Last Filed: 07/25/22 18:28> Imaging Data Right knee x-ray: Attestation: I personally reviewed and interpreted this imaging study as follows: <BERNICE Clark - Last Filed: 07/25/22 18:28> Radiologist's impression: FINDINGS: No fracture, dislocation or destructive process or joint effusion.? XR/XR knee RT 4V IMPRESSION: Unremarkable exam. <BERNICE Clark - Last Filed: 07/25/22 18:28> Discharge Plan Discharge Clinical Impression: Right knee sprain, Abrasion of knee, right, Fall <Kwesi Bolanos MD - Last Filed: 07/25/22 16:03> Patient Disposition: Home, Self-Care <Kweis Bolanos MD - Last Filed: 07/25/22 16:03> Prescriptions: New ibuprofen 800 mg tablet 800 mg PO Q8H PRN (Reason: pain) Qty: 14 0RF tramadol 50 mg tablet 50 mg PO Q8H PRN (Reason: pain) Qty: 14 0RF Rx Instructions: May partially fill upon patient request No Action medroxyprogesterone [Provera] 10 mg tablet 10 mg PO DAILY 10 Days Qty: 10 0RF <Kwesi Bolanos MD - Last Filed: 07/25/22 16:03> Referrals: [facility] [Provider Group] (If symptoms persist for longer than 2-3 weeks make a follow up appointment ) Larisa Barreto [Primary Care Provider] - 2 days <Kwesi Bolanos MD - Last Filed: 07/25/22 16:03>
[2022-07-25 16:02] VITALS: BP 140/85; PULSE 75; RESP 16; TEMP 36.8; O2SAT 99; BMI 34.9
[2022-07-25] MEDS: traMADoL HCL 50 MG TABLET PO (18:58)
[2022-07-25] MEDS: Ibuprofen 800 MG TABLET PO (18:58)
== END 2022-07-25 19:04 | disposition home or self-care (01) ==
PROVIDERS: Emergency Provider Emergency Medicine; PCP Internal Medicine
DX: S83.91XA Sprain of unspecified site of right knee, initial encounter (principal); S80.211A Abrasion, right knee, initial encounter; W01.0XXA Fall on same level from slipping, tripping and stumbling without subsequent striking against object, initial encounter; Y93.9 Activity, unspecified; Y92.480 Sidewalk as the place of occurrence of the external cause; Y99.9 Unspecified external cause status
CPT/HCPCS: 73564; 99283